=== PATIENT | female | born 1955 | race Caucasian/White ===

== ENCOUNTER 2020-09-05 07:58 | Day surgery (SDC) | payer BC, SELFPAY ==
--- NOTE | 2020-09-05 08:37 | HO.ANESPROP2 ---
[facility] Past Medical History Medical History Arthritis Back pain COPD (chronic obstructive pulmonary disease) CVA (cerebral vascular accident) Diabetes Surgical History Surgical History H/O colonoscopy H/O laparoscopic adjustable gastric banding Social History Social History Smoking Status: Former smoker Advance Directives: No Meds Allergies Allergy/AdvReac Type Severity Reaction Status Date / Time Penicillins [PCN] Allergy Mild HIVES Unverified 08/10/20 14:40 penicillin V Allergy Unknown Verified 01/18/20 00:00 EGGS Allergy Unknown Uncoded 08/18/12 00:00 eggs Allergy Unknown Uncoded 01/18/20 00:00 Penicillin Allergy Unknown Rash Uncoded 08/18/12 00:00 SEA FOOD Allergy Unknown Uncoded 08/18/12 00:00 Home Medications Medication Instructions Recorded Confirmed Type Fish Oil 09/01/20 History Motrin 09/01/20 09/01/20 History omeprazole 09/01/20 History Exam Exam Date and Time: September 05, 2020 0837 Airway Mallampati Class: I TM Dist: >3cm Neck ROM: Full Heart: rrr Lungs: nl Other: ao3 Assessment and Plan Assessment Anesthesia Assessment: Anesthesia Plan Discussed and Chart Reviewed Final Anesthetic Review NPO: Yes ASA Class: II Final Preanesthetic Review: No Changes in Pt Med Stat, Meds/Allgs Chart Reviewed, Consent Obtained/Reviewed and Anes Risks/Benef Reviewed Patient Risk: Low Procedure Risk: Low Anesthetic Plan Anesthetic Plan: MAC: Disposition: Standard PACU
[2020-09-05 08:40] VITALS: BP 138/76; PULSE 70; RESP 16; TEMP 36.1; O2SAT 97; BMI 30.2
[2020-09-05] MEDS: Lactated Ringers 1,000 ML 50 ML IVCONT (08:55)
--- NOTE | 2020-09-05 09:17 | MHC.SHP ---
Pre-Procedural Eval Section A The patient is an INPATIENT: No Changes since office visit: No Cold of Flu in the past 2 weeks, No New Medical Problems, No Changes in Medication and No Patient answered all questions The History & Physical has been completed within 30 days and I have reviewed it.: Yes Section B Chief Complaint: GERD, RECTAL BLEEDING Allergies: Allergies Allergy/AdvReac Type Severity Reaction Status Date / Time Penicillins [PCN] Allergy Mild HIVES Verified 09/05/20 08:48 penicillin V Allergy Unknown Hives Verified 09/05/20 08:48 EGGS Allergy Unknown upset Uncoded 09/05/20 08:48 stomach eggs Allergy Unknown Swelling Uncoded 09/05/20 08:48 Penicillin Allergy Unknown Rash Uncoded 08/18/12 00:00 SEA FOOD Allergy Unknown Swelling Uncoded 09/05/20 08:48 Plan Patient has been examined and remains a candidate for the planned procedure
[2020-09-05 09:50] VITALS: BP 127/71; PULSE 66; RESP 16; TEMP 36.1; O2SAT 98
--- NOTE | 2020-09-05 09:50 | PM.OP ---
Brief Operative Note Date of procedure: 09/05/20 Pre-op diagnosis: GERD, rectal bleeding Post-op diagnosis: same (normal colonoscopy) Procedure: egd colonoscopy Surgeon: Benja Vargas Anesthesia: MAC Estimated blood loss (mL): 5 Pathology: other (antrum and egj biopsies) Condition: stable Disposition: PACU
[2020-09-05 10:05] VITALS: BP 138/72; PULSE 62; RESP 20; O2SAT 98
--- NOTE | 2020-09-05 10:13 | OP_ITS ---
SURGEON: Benja Vargas MD INDICATIONS: 1. Gastroesophageal reflux disease. 2. Rectal bleeding. PREOPERATIVE DIAGNOSIS: POSTOPERATIVE DIAGNOSIS: PROCEDURE PERFORMED: 1. Upper endoscopy with biopsy. 2. Colonoscopy to the terminal ileum. ESTIMATED BLOOD LOSS: COMPLICATIONS: ANESTHESIA: ASSISTANTS: SPECIMENS: DESCRIPTION OF PROCEDURE: History and physical performed. The risks and benefits of the procedure were explained to the patient. Informed consent was obtained. The patient was placed in left lateral decubitus position. The Olympus video gastroscope was introduced into the esophagus, stomach, and duodenum. Examination was performed. The scope was removed. She tolerated the procedure well and was repositioned for colonoscopy. Digital rectal exam was performed and was found to be normal. The Olympus pediatric video colonoscope was introduced into the rectum and advanced to the cecum without difficulty. The cecum was identified by transillumination, palpation, and identification of ileocecal valve. Examination was performed. The scope was removed. She tolerated the procedure well and returned to recovery area in stable condition. FINDINGS: Upper endoscopy: 1. Esophagus: The esophagus was normal. There was no esophagitis. 2. Stomach: The stomach showed surgical changes from her previous lap band placement. Antral biopsies were obtained to rule out H pylori. No ulcer was identified. 3. Duodenum: The bulb and second portion were normal. Colonoscopy: The terminal ileum was normal. The visualized colonic mucosa was within normal limits without evidence of masses or ulcers. No polyps were identified. There was mild diverticulosis. Retroflexed examination showed small internal hemorrhoids. IMPRESSION: 1. Gastroesophageal reflux disease. 2. Rectal bleeding, normal colonoscopy. RECOMMENDATION: 1. Follow up the biopsy results. 2. Repeat colonoscopy is recommended in 10 years for average risk individuals. MD VITALIY Gaytan/TAMARA / [id number]
== END 2020-09-05 10:41 | disposition home or self-care (01) ==
PROVIDERS: Internal Medicine Gastroenterology; PCP Family Medicine; Visit Provider Internal Medicine
PROC: (CPT 45378; principal; 2020-09-05 09:20)
DX: K62.5 Hemorrhage of anus and rectum (principal); Z86.010 Personal history of colon polyps; Z80.0 Family history of malignant neoplasm of digestive organs; K57.30 Diverticulosis of large intestine without perforation or abscess without bleeding; K64.8 Other hemorrhoids; K21.9 Gastro-esophageal reflux disease without esophagitis; K29.50 Unspecified chronic gastritis without bleeding; Z90.49 Acquired absence of other specified parts of digestive tract; Z98.84 Bariatric surgery status; Z79.899 Other long term (current) drug therapy; Z79.1 Long term (current) use of non-steroidal anti-inflammatories (NSAID); Z87.891 Personal history of nicotine dependence; Z88.0 Allergy status to penicillin; Z91.012 Allergy to eggs
CPT/HCPCS: 45378; 43239; 88305; 88342

== ENCOUNTER 2020-10-26 12:27 | Outpatient (REF) | payer BC, SELFPAY | END 2020-10-26 12:28 | disposition home or self-care (01) | LOC: HO.HMGCLDS 12:27 | PROVIDERS: Visit Provider Internal Medicine | DX: Z20.828 Contact with and (suspected) exposure to other viral communicable diseases (principal) | CPT/HCPCS: C9803; U0003 ==

== ENCOUNTER 2024-06-17 11:05 | Outpatient (AMB) | payer BC, SELFPAY ==
--- NOTE | 2024-06-17 11:40 | AM.OFFWIN_ITS ---
Intake Vital Signs 06/17/24 11:41 Height 5 ft 2 in Weight 187 lb BMI 34.2 BP 122/80 Blood Pressure Location Rt brachial Position Sitting Pulse 77 Pulse Source Pulse Oximeter Temp 98.2 F Temp Source Oral Pulse Oximetry (%) 98 Oxygen Delivery Method Room Air Intake Visit Reasons: Ongoing Cold for 3wks Intake Note: pt here c/o ongoing cold symptoms for 3 weeks Patient Tobacco Use Status: Never used Tobacco Allergies Penicillins [PCN] Allergy (Mild, Verified 06/17/24 11:41) HIVES penicillin V Allergy (Unknown, Verified 06/17/24 11:41) Hives EGGS Allergy (Unknown, Uncoded 06/17/24 11:41) upset stomach eggs Allergy (Unknown, Uncoded 06/17/24 11:41) Swelling Penicillin Allergy (Unknown, Uncoded 06/17/24 11:41) Rash SEA FOOD Allergy (Unknown, Uncoded 06/17/24 11:41) Swelling Do you need a note to return to daycare/school/sports/work: No HPI HPI Comments History of Present Illness Details Patient is a 69-year-old female complaining of 3 weeks of cold symptoms. She said it is it started with some right ear pain and some lymph node swelling on her right side below her ear. But now she states she has lymph node swelling on the left side of her neck some chest congestion some wheezing and a cough. She denies a history of asthma but said she had it as a child. She denies any head congestion, sinus pain, shortness of breath, chest pain or fevers. She states he has taken Advil with minimal relief. She denies any sick contacts at home. She has tested for COVID twice and it has been negative. 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 [facility] Medical History (Updated 06/17/24 @ 12:03 by Chelita Stacy PA-C) Arthritis Back pain Surgical History H/O laparoscopic adjustable gastric banding H/O colonoscopy Social History Patient Tobacco Use Status: Never used Tobacco Review of Systems Const All systems reviewed & are unremarkable except as noted in HPI and below Physical Exam Vital Signs: Last Vital Signs Temp 98.2 F 06/17/24 11:41 Pulse 77 06/17/24 11:41 BP 122/80 06/17/24 11:41 Pulse Ox 98 06/17/24 11:41 Oxygen Delivery Method Room Air 06/17/24 11:41 BMI result Body Mass Index 34.2 Const General: cooperative, healthy appearing, comfortable and no acute distress Orientation/consciousness: patient oriented x3 Limitations: no limitations HEENT Head: Yes normal to inspection Ears: hearing grossly normal bilaterally, external ears normal, TM normal on the left, Abnormal EAC present edema on the right and EAC tenderness on the right and unable to visualize TM (Secondary to swelling in the external ear canal) on the right General nose exam: Normal external nose present, Normal nares present and No nasal discharge present Face and sinus: Yes normal facial exam and Yes sinuses nontender Mouth: Normal oral and palatal mucosa present and moist mucous membranes Throat: Yes tonsils normal, Yes uvula midline and Yes posterior oropharynx abnormal (Erythema) Eyes General: appearance normal, both eyes and all related structures Neck Neck: Yes normal visual inspection, Yes full ROM, Yes no meningeal signs and Yes lymphadenopathy (Cervical lymph nodes, bilateral) Resp Effort & Inspection: normal respiratory effort, able to speak in complete sentences, Actively coughing, no respiratory distress, not tachypneic, no tripod positioning and no use of accessory muscles Auscultation: clear to auscultation bilaterally Cardio Rate: regular rate Rhythm: regular rhythm Heart sounds: normal S1 and S2 Skin General skin exam: no rashes or lesions noted Neuro General: patient oriented x3 and no meningeal signs Extrem General: Yes normal to inspection and Yes no clubbing, cyanosis or edema Assessment & Plan Assessment & Plan (1) Otitis externa: Code(s): H60.90 - Unspecified otitis externa, unspecified ear Qualifiers: Otitis externa type: diffuse Chronicity: acute Laterality: right Qualified Code(s): H60.311 - Diffuse otitis externa, right ear Plan: Recommended if her ear pain persists after she is done using the drops to come back in because I could not visualize the tympanic membrane and I could not rule out an otitis media. However she is also getting a Z-Russell for the walking pneumonia which if she did have a otitis media, should help with. (2) Atypical pneumonia: Code(s): J18.9 - Pneumonia, unspecified organism Plan: Sent Z-Russell to pharmacy Plan See above Medications: New rqltwnop-wjezjoejz-BA 3.5-10,000-1 mg/mL-unit/mL-% 4 drps otic (ear) right Q8H 7 days 10 mL 0RF azithromycin For 250 mg dose pack: take 500 mg today (day 1), then 250 mg for 4 days (days 2-5) PO 6 tabs 0RF Coding Level of Care Code New Pt Level 4 (63811) Diagnoses Acute diffuse otitis externa of right ear H60.311 Otitis externa type: diffuse Chronicity: acute Laterality: right Atypical pneumonia J18.9
[2024-06-17 11:41] VITALS: BP 122/80; PULSE 77; TEMP 36.8; O2SAT 98; BMI 34.2
== END 2024-06-17 12:01 | disposition home or self-care (01) ==
PROVIDERS: PCP Family Medicine; Visit Provider Physician Assistant
DX: H60.311 Diffuse otitis externa, right ear (principal); J18.9 Pneumonia, unspecified organism
CPT/HCPCS: 99204

== ENCOUNTER 2024-10-31 14:57 | Emergency (ER) | payer BC, SELFPAY ==
--- NOTE | 2024-10-31 | ECG_ITS ---
Test Reason : syncope Blood Pressure : / mmHG Vent. Rate : 070 BPM Atrial Rate : 070 BPM P-R Int : 178 ms QRS Dur : 084 ms QT Int : 424 ms P-R-T Axes : 036 006 036 degrees QTc Int : 457 ms Sinus rhythm with occasional Premature ventricular complexes Possible Left atrial enlargement Nonspecific T wave abnormality Abnormal ECG When compared with ECG of 30-MAY-2003 16:29, Premature ventricular complexes are now Present T wave amplitude has decreased in Lateral leads Referred By: Generic ED Physician Electronically Signed By:PAT ABDALLA MD
--- NOTE | ~2024-10-31 | XR_ITS ---
EXAMINATION: XR CHEST CLINICAL INFORMATION: syncope COMPARISON: None available. TECHNIQUE: 2 views of the chest were obtained. FINDINGS: No significant abnormality is noted involving the heart, lungs, mediastinum, bony thorax or soft tissues. XR/XR chest 2V IMPRESSION: Unremarkable examination. Electronically signed by: Leigh Ann Garcia MD 10/31/2024 04:05 PM [facility]
[2024-10-31 15:01] VITALS: BP 128/92; PULSE 68; O2SAT 98
[2024-10-31 15:05] VITALS: BMI 36.2
[2024-10-31 15:26] LABS: MANUAL DIFF FLAG NO
[2024-10-31 15:28] LABS: Basophils Percent Auto 0.5 % (0-2); Eosinophils Absolute Auto 0.2 X10*3/uL (0.0-0.4); Eosinophils Percent Auto 3.1 % (0-4); Hematocrit 40.5 % (37.0-47.0); Hemoglobin 13.6 g/dl (12.0-16.0); Imm Gran Abs Auto 0.03 X10*3/uL (0.00-0.03); Imm Gran Pct Auto 0.4 % (0.0-0.4); Lymphocytes Absolute Auto 2.9 X10*3/uL (1.2-4.9); Lymphocytes Percent Auto 38.3 % (20-40); Mean Corpuscular HGB Conc 33.6 g/dl (31.0-35.0); Mean Corpuscular Hemoglobin 33.5 pg (27.0-33.0); Mean Corpuscular Volume 99.8 fL (80.0-98.0); Mean Platelet Volume 11.3 fL (9.4-12.3); Monocytes Absolute Auto 0.5 X10*3/uL (0.1-1.2); Monocytes Percent Auto 6.6 % (2-11); Neutrophils Absolute Auto 3.9 x10*3/uL (2.0-8.3); Neutrophils Percent Auto 51.1 % (45-73); Platelet Count 208 X10*3/uL (160-400); Red Blood Count 4.06 X10*6/uL (4.20-5.50); Red Cell Distribution Width 12.9 % (11.0-16.0); White Blood Count 7.6 X10*3/uL (4.8-10.8)
[2024-10-31 15:34] LABS: INTERNATIONAL NORM RATIO 0.9 (0.9-1.1)
[2024-10-31 15:36] LABS: Partial Thromboplastin Time 26.7 SEC (26.0-36.8)
[2024-10-31 15:48] LABS: Albumin Level 3.9 g/dL (3.5-5.0); Anion Gap 13 (12-20); Aspartate Amino Transferase 33 U/L (5-31); Bilirubin Total 0.2 mg/dL (0.0-1.0); Blood Urea Nitrogen 12 mg/dL (9-16); Calcium 9.6 mg/dL (8.4-10.2); Carbon Dioxide 22 mmol/L (22-29); Chloride 108 mmol/L (96-108); Creatinine Clr Calc Pharmacy 59.2; Estimated Glomerular Filt Rate 58; Glucose Random 124 mg/dL (60-115); Magnesium 1.8 mg/dL (1.6-2.6); Potassium 3.4 mmol/L (3.3-5.1); Sodium 140 mmol/L (135-145)
[2024-10-31 15:50] LABS: Appearance Urine Cloudy; Color Urine Yellow; Glucose Urine UA Negative (Negative); Leukocyte Esterase Urine Trace (Negative); Nitrite Urine Negative (Negative); Specific Gravity - Urine 1.015 (1.005-1.025); UMIC TRIGGER UACC YES; Urine Blood Trace (Negative); Urine Ketones Negative (Negative); Urine Protein Negative (Neg-Trace)
[2024-10-31 15:51] LABS: Troponin-I High Sensitivity < 2.7 ng/L (<3.5-17.0)
[2024-10-31 16:12] LABS: Influenza A PCR NEGATIVE (Negative); Influenza B PCR NEGATIVE (Negative); Resp Syncy Virus RNA Qual PCR NEGATIVE (Negative); SARS COV2 PCR INHOUSE NEGATIVE (Negative)
[2024-10-31 16:12] LABS: Bacteria Urine Trace (None Seen); RBC Urine 0-2 /HPF (0-2); WBC Urine 0-5 /HPF (0-5)
[2024-10-31 16:33] LABS: Alanine Aminotransferase 34 U/L (0-31); Alkaline Phosphatase 91 U/L (39-117)
--- NOTE | 2024-10-31 16:57 | ED.GENADULT ---
HPI - General Adult General Chief complaint: Syncope Stated complaint: SYNCOPAL EPISODE Time Seen by Provider: 10/31/24 16:57 History of Present Illness ED Provider: Nicole COLON narrative: The patient is a 69-year-old female who was at her uncle's 87th birthday alliance party. The alliance party started at noon. She had eaten lunch. She was standing around with other people in the living room. There were a lot of people, possibly 25 people. She started to feel somewhat hot and depressed. She then felt lightheaded and as if she might pass out. She indicated to her that she was not feeling well and was trying to find a chair to sit down when she became very weak and her had to catch her. The says that she did not fully pass out but came very close to passing out. She lay on the ground for awhile and then felt a need to move her bowels. She was helped to the bathroom and had a large bowel movement and became profoundly sweaty. During this time someone had called 911. Paramedics arrived and brought her to the hospital. During that episode she did not have any headache she did not have any chest pain she did not have any shortness of breath, she had nausea but she did not have any abdominal pain. She did not vomit. The patient says that she had a similar episode about a year ago when she was at a gymnastics meet. She says on that occasion she also was in a large warm room wearing a coat when she started to feel like she might pass out. Not occasion she was taken to the emergency room at [facility]. She was evaluated and discharged from the emergency room. The patient has had episodes which have been thought to possibly be TIAs. She described an episode in which she once had trouble recalling words. That episode was not associated with the fainting component. Related Data Home Medications ?Medication ?Instructions ?Recorded ?Confirmed ezetimibe 10 mg tablet 10 mg PO DAILY 06/17/24 ibuprofen 200 mg capsule 200 mg PO Q6H PRN 06/17/24 Previous Rx's ?Medication ?Instructions ?Recorded azithromycin 250 mg tablet See Rx Instructions PO .COMPLEX #6 06/17/24 tabs ehjvjhux-ibwmtoyia-pwezhoiet 3.5 4 drp otic (ear) right Q8H 7 days 06/17/24 mg-10,000 unit/mL-1 % ear #10 mL drops,susp Allergies Allergy/AdvReac Type Severity Reaction Status Date / Time Penicillins [PCN] Allergy Mild HIVES Verified 10/31/24 15:06 penicillin V Allergy Unknown Hives Verified 10/31/24 15:06 EGGS Allergy Unknown upset Uncoded 10/31/24 15:06 stomach eggs Allergy Unknown Swelling Uncoded 10/31/24 15:06 Penicillin Allergy Unknown Rash Uncoded 10/31/24 15:06 SEA FOOD Allergy Unknown Swelling Uncoded 10/31/24 15:06 Review of Systems Review of Systems: Yes all other systems are reviewed and are negative [facility] Past Medical History Medical History (Updated 11/01/24 @ 00:00 by Marietta Aquino) Arthritis Back pain Surgical History H/O laparoscopic adjustable gastric banding H/O colonoscopy Social History Social History Patient Tobacco Use Status: Never used Tobacco Advance Directives: No Advance Directives Information Provided: Yes Do you have a plan to hurt others: No Plan Physical Exam ED Vital Signs: Vital Signs - 24 hr 10/31/24 18:00 10/31/24 18:01 10/31/24 18:18 Temperature 97.8 F 97.7 F Pulse Rate 79 71 Respiratory Rate 18 18 Blood Pressure 206/94 H 197/89 H 185/72 H Pulse Oximetry 98 98 Oxygen Delivery Method Room Air Room Air 10/31/24 18:19 Temperature 97.7 F Pulse Rate 71 Respiratory Rate 18 Blood Pressure 185/72 H Pulse Oximetry 98 Oxygen Delivery Method Room Air BMI result Body Mass Index 36.2 Const Other: The patient is awake, alert, pleasant, cooperative. She looks entirely well. HENMT Head: Yes normal to inspection Face and sinus: Yes normal facial exam Mouth: Normal oral and palatal mucosa present and moist mucous membranes abnormal Eyes General: appearance normal, both eyes and all related structures EOM: EOMs intact bilaterally Neck Neck: Yes full ROM and Yes no JVD Resp Effort & Inspection: normal respiratory effort Auscultation: clear to auscultation bilaterally Cardio Rate: regular rate Rhythm: regular rhythm Heart sounds: S1 normal heart sound present and S2 normal heart sound present GI Other: Abdomen is soft and nontender Skin Other: Skin is dry and unremarkable Neuro Other: The patient is awake, alert, pleasant, cooperative. Face is symmetrical. Speech is clear. Eye movements intact. Neck is supple. She moves her extremities normally and appropriately. She has a normal gait. Extrem Other: No calf swelling or tenderness, no peripheral edema, no asymmetry Medications Administered Discontinued Medications Generic Name Dose Route Start Last Admin Trade Name Kiran PRN Reason Stop Dose Admin Acetaminophen 975 mg 10/31/24 17:22 10/31/24 17:36 Acetaminophen 325 Mg Tablet PO 10/31/24 17:23 975 mg ONCE ONE Administration Sodium Chloride 1,000 mls @ 999 mls/hr 10/31/24 17:15 10/31/24 17:36 Ns IV 10/31/24 18:15 999 mls/hr .Q1H1M [facility] Administration Medical Decision Making Medical Decision Making [facility] Narrative: The patient presents to the emergency room after having a syncopal episode that occurred while she was standing at a alliance party in a crowded room. She had a prodromal sense of feeling lightheaded and she had the sense that she was going to pass out. Her caught her as she went to the ground. There was no injury. Her isn't sure that she had full loss of consciousness. She subsequently had powerful urge to have a bowel movement passed a large bowel movement and became profoundly sweaty. This was not associated with a headache, chest pain, pleuritic pain, shortness of breath, or abdominal pain. She seems to have fully recovered. She has subsequently developed a headache but she looks very well. EKG and labs are unremarkable. This sounds very much like a vasovagal episode. She describes a similar episode at a gymnastics meet year ago when she was evaluated at [facility] in discharged from the emergency room on that occasion. I think she may be discharged to follow up with the regular doctor. Lab Data 10/31/24 15:19 10/31/24 15:19 Labs: Lab Results 10/31/24 10/31/24 Range/Units 15:19 15:43 WBC 7.6 (4.8-10.8) X10*3/uL RBC 4.06 L (4.20-5.50) X10*6/uL Hgb 13.6 (12.0-16.0) g/dl Hct 40.5 (37.0-47.0) % MCV 99.8 H (80.0-98.0) fL MCH 33.5 H (27.0-33.0) pg MCHC 33.6 (31.0-35.0) g/dl RDW 12.9 (11.0-16.0) % Plt Count 208 (160-400) X10*3/uL MPV 11.3 (9.4-12.3) fL Immature Gran % (Auto) 0.4 (0.0-0.4) % Neut % (Auto) 51.1 (45-73) % Lymph % (Auto) 38.3 (20-40) % Henderson % (Auto) 6.6 (2-11) % Eos % (Auto) 3.1 (0-4) % Baso % (Auto) 0.5 (0-2) % Lymph # (Auto) 2.9 (1.2-4.9) X10*3/uL Henderson # (Auto) 0.5 (0.1-1.2) X10*3/uL Eos # (Auto) 0.2 (0.0-0.4) X10*3/uL Baso # (Auto) 0.0 (0.0-0.2) X10*3/uL Abs Immat Gran (auto) 0.03 (0.00-0.03) X10*3/uL Absolute Neuts (auto) 3.9 (2.0-8.3) x10*3/uL Absolute Nucleated RBC 0.000 (0.0-0.012) X10*3/uL Nucleated RBC % (auto) 0.0 (0.0-0.2) /100WBC PT 11.0 (10.9-12.4) SEC INR 0.9 (0.9-1.1) APTT 26.7 (26.0-36.8) SEC Sodium 140 (135-145) mmol/L Potassium 3.4 (3.3-5.1) mmol/L Chloride 108 (96-108) mmol/L Carbon Dioxide 22 (22-29) mmol/L Anion Gap 13 (12-20) BUN 12 (9-16) mg/dL Creatinine 0.96 (0.5-1.4) mg/dL Estim Creat Clear Calc 59.2 Estimated GFR 58 Random Glucose 124 H (60-115) mg/dL Calcium 9.6 (8.4-10.2) mg/dL Magnesium 1.8 (1.6-2.6) mg/dL Total Bilirubin 0.2 (0.0-1.0) mg/dL AST 33 H (5-31) U/L ALT 34 H (0-31) U/L Alkaline Phosphatase 91 (39-117) U/L Troponin I High Sens < 2.7 (<3.5-17.0) ng/L Total Protein 7.0 (6.5-8.0) g/dL Albumin 3.9 (3.5-5.0) g/dL Urine Color Yellow Urine Appearance Cloudy Urine pH 5.0 (5.0-9.0) Ur Specific [place] 1.015 (1.005-1.025) Urine Protein Negative (Neg-Trace) mg/dL Urine Glucose (UA) Negative (Negative) mg/dL Urine Ketones Negative (Negative) mg/dL Urine Blood Trace H (Negative) Urine Nitrite Negative (Negative) Ur Leukocyte Esterase Trace H (Negative) Urine RBC 0-2 (0-2) /HPF Urine WBC 0-5 (0-5) /HPF Ur Squamous Epith Cells 3-5 (0-2) /HPF Urine Bacteria Trace (None Seen) Hyaline Casts 6-10 (0-2) /LPF Influenza Type A (PCR) NEGATIVE (Negative) Influenza Type B (PCR) NEGATIVE (Negative) RSV RNA Qual (PCR) NEGATIVE (Negative) SARS-CoV-2 RNA (RT-PCR) NEGATIVE (Negative) Independent Interpretation I performed an independent interpretation of an: EKG Interpretation: EKG at 15:11 shows sinus rhythm with the occasional premature ventricular complexes at 70 beats per minute. There are nonspecific T-wave changes but no definite acute ischemic changes. The EKG is different in some respects from her previous EKG but her last EKG was in 2002. Discharge Plan Discharge Clinical Impression: Vasovagal syncope Patient Disposition: Home, Self-Care Instructions: Syncope (ED) Additional Instructions: I believe that the fainting that you experienced today is a process that we referred to as ?vasovagal syncope. ? I suspect that this is the same mechanism that occurred when you had a fainting episode a year ago and were seen in the emergency room at [facility]. Vasovagal syncope is considered a benign phenomenon and is not considered indicative of other problems. Nevertheless please make a follow up appointment with your regular doctor soon to discuss these episodes further. Return to the emergency room if significantly worse Prescriptions: No Action ezetimibe 10 mg tablet 10 mg PO DAILY ibuprofen 200 mg capsule 200 mg PO Q6H PRN dzyeuqmr-bhgusvkgt-QQ 3.5-10,000-1 mg/mL-unit/mL-% drops,suspension 4 drp otic (ear) right Q8H 7 Days Qty: 10 0RF azithromycin 250 mg tablet See Rx Instructions PO .COMPLEX Qty: 6 0RF Rx Instructions: For 250 mg dose pack: take 500 mg today (day 1), then 250 mg for 4 days (days 2-5) PO Referrals: Matteo Cho MD [Physician] - (Vasovagal syncope) Interventions: ED Discharge Assessment Last Done: 10/31/24 18:19 Discharge Date/Time: 10/31/24 18:23 Print Language: Sami
[2024-10-31] MEDS: 0.9 % Sodium Chloride 1,000 ML 999 ML IV (17:36)
[2024-10-31] MEDS: Acetaminophen 325 MG TABLET 975 MG PO (17:36)
--- NOTE | 2024-10-31 17:47 | PC.NURSE ---
pt verbalizes increase in headache at this time - requesting Tylenol. provider notified/aware. medication/IVF infusing per provider order. effectiveness pending. neuros remain intact. respirations remain even/unlabored. bedside for support. plan of care ongoing. call edwards placed within reach.
[2024-10-31 18:00] VITALS: BP 206/94; PULSE 79; RESP 18; TEMP 36.6; O2SAT 98
[2024-10-31 18:01] VITALS: BP 197/89
[2024-10-31 18:18] VITALS: BP 185/72; PULSE 71; RESP 18; TEMP 36.5; O2SAT 98
[2024-10-31 18:19] VITALS: BP 185/72; PULSE 71; RESP 18; TEMP 36.5; O2SAT 98
--- OUTSIDE RECORDS SUMMARY | 2024-11-03 12:11 | XMS_ITS | Patient Health Record ---
Author Organization [facility] Address [address] [place] [address] Care Team Providers Care Line Repairer Tower Name Role Phone Matteo Cho Primary Care Provider Benja Mendes Jr Unavailable [phone] ALLERGIES Allergen (clinical drug ingredient) Drug/Non Drug Allergy documented on EMR Reaction Allergy Type Onset Date Status Penicillin Unknown Drug Allergy Active Eggs (uncoded) Unknown Allergy Activ e REASON FOR REFERRAL No Information MEDICATIONS Medication SIG (Take, Route, Frequency, Duration) Notes Start Date End Date Status Ibuprofen PRN Active Fish Oil Active NexIUM 40 MG 1 capsule Orally Onc e a day for 30 day(s) 11/27/2020 Active IMMUNIZATIONS Vaccine Route Administration Date Status Comme nts Influenza Unknown 08/16/2020 Refused Influenza Unknown 11/27/2020 Refused SOCIAL HISTORY Tobacco Use: Social History Observation Description Date Details (start date - stop date) Former Smoker NA - NA Sex Assigned At : Social History Observation Description Sex Assigned At Unknown Tobacco Use/Smoking Question Answer Notes Patient is a former smoker How long has it been since you last smoked? > 10 years PROBLEMS Problem Type ICD Code Onset Dates Problem Status W/U Status Risk SNOMED Code Notes Problem Colon cancer screening (Z12.11) Active confirmed 569700672 Problem Rectal bleeding (K62.5) Active confirmed 67413219 Problem Encounter for other preprocedural examination (Z01.818) Active confirmed 38624865 Problem Gastroesophageal reflux disease without esophagitis (K21.9) Active confirmed 947662296 PLAN OF TREATMENT Future Test Test Name Order Date COLONOSCOPY 04/08/2013 COLONOSCOPY 02/01/2016 UPPER GI ENDOSCOPY 08/16/2020 COLONOSCOPY 08/16/2020 Insurance Providers Payer Name Payer Address Payer Phone Subscriber Number Group Number Insured Name Patient Relationship to Insured Coverage Start Date Coverage End Date [facility] [employer] [address] [place] [address] [id number]SY SAHA Self - patient is the insured MEDICAL (GENERAL) HISTORY Medical History History ICD Code colonoscopy 09/05/20, recall 5 years due to history of polyps dysphagia gastroesophageal reflux dise ase, EGD 09/05/20 negative for Rojas's esophagus or H. pylori lower back pain - tail bone Surgical History Surgery Date(Month/Year) cholecystectomy laparoscopic gastric banding
--- OUTSIDE RECORDS SUMMARY | 2024-11-03 12:11 | XMS_ITS | Continuity of Care Document ---
Author Organization [facility] Address [address] [facility], 3r d Floor, [address] [place] [phone]- Care Team Providers Care Rehab Assistant Name Role Phone Marqusi KIM, Matteo Dupree Primary Care Physician [facility] [id number] Date(s): 09/14/24 - 10/14/24 [facility] [address] [facility] 3rd Floor, [address] [place] [id number] Attending Physician: Meaghan Gomes Admitting Physician: Meaghan Gomes Referring Physician: Admtr ArKatt Encounter Type: Triage Allergies, Adverse Reactions, Alerts Substance Criticality Severity Reaction Reaction Severity Status penicillins reports severe rash requiring injections as a child Active Egg Allergy eczema Active Immunizations Given and Recorded Vaccine Date Status Refusal Reason SARS-CoV-2 (COVID-19) mRNA-1273 vaccine 11/10/21 R ecorded SARS-CoV-2 (COVID-19) mRNA-1273 vaccine 03/08/21 R ecorded SARS-CoV-2 (COVID-19) mRNA-1273 vaccine 02/08/21 R ecorded tetanus/diphtheria/pertussis, acel(Tdap) 1 11/24/09 Recorded 1Location History: [facility] Medications Advil By Mouth, Every 6 hours, Refills 0, Maintenance, 02/26/24 4:43:00 PM EDT, Partial fill upon patient request if the prescription is for a schedule II opioid drug. Start Date: 02/26/24 Status: Ordered Repeat number: 1 Diflucan 150 mg oral tablet 1 tablet = 150 mg, By Mouth, Once, # 1 tablet, 0 Refills, Soft Stop, 07/14/24 4:54:00 PM EDT, Tablet, [facility], Partial fill upon patient request if the prescription is for a schedule II opioid drug., 157.5, cm, 07/14/24 16:23:00 EDT, Height, 85, kg, 06/07/24 14:21:00 EDT, Dry Weight Start Date: 07/14/24 Status: Ordered Quantity: 1.0 Unit: tablet Repeat number: 1 Indication: Acute candidiasis of vulva and vagina metoprolol 25 mg oral tablet, extended release 25 mg, 1, tablet, By Mouth, Daily, # 30 tablet, Refills 2, Tot. Refills 2, Maintenance, 08/13/24 12:48:00 PM EDT, Route to Pharmacy Electronically, [facility], Partial fill upon patient request if the prescription is for a schedule II opioid drug., 157.5, cm, 07/14/24 16:23:00 EDT, Height, 85, kg, 06/07/24 14:21:00 EDT, Dry Weight Start Date: 08/13/24 Status: Ordered Quantity: 30.0 Unit: tablet Repeat number: 3 pantoprazole 40 mg oral delayed release tablet 1 tablet, By Mouth, Daily, # 90 tablet, 1 Refills, Maintenance, 08/09/23 9:14:00 AM EDT, 157.5, cm, 01/03/23 13:39:00 EST, Height, 78.4, kg, 08/20/22 11:34:00 EDT, Dry Weight Start Date: 08/09/23 Status: Ordered Quantity: 90.0 Unit: tablet Repeat number: 1 Plavix 75 mg oral tablet 75 mg, 1, tablet, By Mouth, Daily, Watch for rash and stop immediately if any rash or bleeding noted., # 30 tablet, Refills 5, Tot. Refills 5, Maintenance, 06/07/24 3:17:00 PM EDT, Route to Pharmacy Electronically, [facility], Patient allergic to aspirin; okay to take with pantoprazole if needed, 157.5, cm, 06/07/24 14:21:00 EDT, Height, 85, kg, 06/07/24 14:21:00 EDT, Dry Weight Start Date: 06/07/24 Stop Date: 12/04/24 Status: Ordered Quantity: 30.0 Unit: tablet Repeat number: 6 Zetia 10 mg oral tablet 1 tablet = 10 mg, By Mouth, Daily, # 30 tablet, 6 Refills, Maintenance, 06/07/24 3:18:00 PM EDT, Tablet, [facility] # [facility], Partial fill upon patient request if the prescription is for a schedule IIopioid drug., 157.5, cm, 06/07/24 14:21:00 EDT, Height, 85, kg, 06/07/24 14:21:00 EDT, Dry Weight Start Date: 06/07/24 Stop Date: 01/03/25 Status: Ordered Quantity: 30.0 Unit: tablet Repeat number: 7 Problem List Condition Confirmation Course Effective Dates Status Health St atus Informant Acid reflux disease Confirmed Active Chronic heartburn Confirmed Active Obese class I Confirmed Active Social History Social History Type Response Smoking Status Former smoker; Tobac co user in household: Yes; Other: parent smoked; Tobacco use times per day: quit 31 yrs ago; entered on: 03/04/18 Sex Sex Representation Female (finding) Patient Care team information Care Team Personnel Name: Marquis KIM, Matteo Dupree Position: S Physician - Primary Care Member Role: PCP Address: [address] [place] [id number] Telecom: Care Team Related Persons Name: IZABELA SAHA Insurance Providers Guarantor name: PATSY [facility] Plan Information #: 1 Payer: O BLUE IN NETWORK Member Number: NA Policy Number: NA Group Number: NA
--- OUTSIDE RECORDS SUMMARY | 2024-11-03 12:11 | XMS_ITS | Continuity of Care Document ---
Author Organization [facility] Address [address] [place] [address]- Care Team Providers Care Packaging Coordinator Name Role Phone Marquis KIM, Matteo Dupree Primary Care Physician [phone] [id number] Date[facility]s): 09/08/24 - 10/08/24 [facility] [address] [place] [address]- Encounter Type: Triage Allergies, Adverse Reactions, Alerts [...] tetanus/diphtheria/pertussis, acel(Tdap) 1 11/24/09 Recorded 1Location History: [facility] Medications Advil By Mouth, Every 6 hours, Refills 0, Maintenance, 02/26/24 4:43:00 PM EDT, Partial fill upon patient request if the prescription is for a schedule II opioid drug. Start Date: 02/26/24 Status: Ordered Repeat number: 1 Diflucan 150 mg oral tablet 1 tablet = 150 mg, By Mouth, Once, # 1 tablet, 0 Refills, Soft Stop, 07/14/24 4:54:00 PM EDT, Tablet, [facility], Partial fill upon [...] 12:48:00 PM EDT, Route to Pharmacy Electronically, [facility] # [facility], Partial fill upon patient [...] 3:17:00 PM EDT, Route to Pharmacy Electronically, [facility] # [facility], Patient allergic to aspirin; [...] Care team information Care Team Personnel Name: Matteo Cho MD Position: [facility] Physician - Primary Care Member Role: PCP Address: [address] [place] [phone]- Telecom: Care Team Related Persons Name: IZABELA SAHA Insurance Providers Guarantor name: PATSY YIFAN Health Plan Information #: 1 Payer: HMO BLUE IN NETWORK Member Number: NA Policy Number: NA Group Number: NA
== END 2024-10-31 18:23 | disposition home or self-care (01) ==
PROVIDERS: Physician Assistant Medical; Emergency Provider Emergency Medicine
DX: R55 Syncope and collapse (principal); R42 Dizziness and giddiness; R94.31 Abnormal electrocardiogram [ECG] [EKG]; R11.0 Nausea; Z03.818 Encounter for observation for suspected exposure to other biological agents ruled out; Z79.899 Other long term (current) drug therapy
CPT/HCPCS: 0241U; 36415; 71046; 80053; 81001; 83735; 84484; 85025; 85610; 85730; 93005; 96360; 99284

== ENCOUNTER → 2024-10-31 15:11 | Outpatient (BNV) | payer BC, SELFPAY | PROVIDERS: Emergency Provider Emergency Medicine; Visit Provider Internal Medicine Cardiovascular Disease | DX: R55 Syncope and collapse (principal) | CPT/HCPCS: 93010 ==

== ENCOUNTER 2025-09-19 11:42 | Outpatient (AMB) | payer MEDICARE, SELFPAY ==
--- OUTSIDE RECORDS SUMMARY | 2025-05-09 09:15 | XMS_ITS ---
Author Organization [facility] Address [address] [facility] [address] [place] [phone] Care Team Providers Care Study Abroad Advisor Name Role Phone Matteo Cho Primary Care Provider Unavaila Benja Gomez Jr REASON FOR VISIT COLON SCREENING Encounters Encounter Location Date Provider Diagnosis [facility] [address] [facility] [address] [place] [phone] 05/09/2025 Benja Vargas Jr Plan Of Treatment Next Appt Details Provider Name:Benja almendarez Jr, 09/20/2025 07:30:00 AM, [address] [place] [address] , [place], [place], [phone], Progress Notes * LIZA SAHAIDOB:1955 (70 yo F)Acc No.[id number]:05/09/2025 Progress Notes Patient: PATSY SANTAMARIA Provider: Indy Vargas MD :1955 A ge:70 Y S ex:Female Date:05/09/2025 Address:[address] [place] [address] Pcp:Matteo Cho Subjective: * Chief Complaints: * 1 . COLON SCREENING. * Medical History: Objective: * Vitals: Assessment: Plan: * Treatment: * * The named appointment provid er may or may not be the originator of this progress note, and it is not deemed complete until electronically signed by the appointment provider. Sign off status: Pending * Provider: Indy Vargas MD Date: 0 05/09/2025 Generated for Gerry kline/Judy/Beena on: 1 03:03 PM EDT
--- OUTSIDE RECORDS SUMMARY | 2025-08-16 03:30 | XMS_ITS ---
Author Organization [facility] Address [address] [place] [address] Care Team Providers Care Blood Bank Credit Clerk Name Role Phone Matteo Cho Primary Care Provider Unavaila Benja Gomez Jr [phone] REASON FOR VISIT screening Encounters Encounter Location Date Provider Diagnosis [facility] Outpatient [address] [place] [phone] 08/16/2025 Benja Vargas Jr Plan Of Treatment Next Appt Details Provider Name:Benja almendarez Jr, 09/20/2025 07:30:00 AM, [address] [place] [address], [phone], Progress Notes * YIFANLIZAIDOB:1955 (70 yo F)Acc No.[id number]:08/16/2025 COLON WITH MAC Patient: PATSY SANTAMARIA Provider: Indy Vargas MD :1955 A ge:70 Y S ex:Female Date:08/16/2025 Address:[address] [place] [address] Pcp:Matteo Cho Subjective: * Chief Complaints: * 1 . Screening. * Medical History: Objective: * Vitals: Assessment: Plan: * Treatment: * * The named appointment provid er may or may not be the originator of this progress note, and it is not deemed complete until electronically signed by the appointment provider. Sign off status: Pending * Provider: Indy Vargas MD Date: 0 08/16/2025 Generated for Gerry kline/Judy/Beena on: 1 03:03 PM EDT
--- NOTE | 2025-09-19 11:44 | MHC.OFFVISWM ---
VS Expanded 09/19/25 11:54 BP 154/70 H Blood Pressure Location Rt brachial Blood Pressure Position Sitting Pulse 70 Pulse Source Pulse Oximeter Temp 95.9 F L Temperature Source Temporal Artery Scan Pulse Oximetry 96 Oxygen Delivery Method Room Air Height 5 ft 2 in Weight 193 lb 12.8 oz BMI 35.4 Body Fat % 45.7 Body Fat Mass 88.6 Fat Free Mass 105.2 Visceral Fat Rating 14.0 Body Water % 38.3 Body Water Mass 74.2 Muscle Mass/Score 99.8 Basal Metabolic Rate/Score 1,471 Intake Visit Reasons: OV [employer] SWL/MWL BMI 35.0 Allergies egg (eggs) Allergy (Intermediate, Verified 09/19/25 12:20) Gastrointestinal Upset seafood Allergy (Intermediate, Verified 09/19/25 12:20) Swelling Penicillins (PCN) Allergy (Mild, Verified 09/19/25 12:20) HIVES Medication List - Last Reconciled 09/19/25 by Migel Strange MD aspirin 81 mg PO DAILY coQ10 (ubiquinol) 100 mg PO BID ezetimibe 10 mg PO DAILY magnesium oxide 300 mg PO DAILY HPI Comments Details: Previous weight loss efforts: Lap band (2009, pre band weight: 205lbs, lowest: 138lbs) Wakes up: 7am, Sleeps 11pm Breakfast: skips Lunch: 11.30am (grilled cheese, hot dog) Dinner: 5pm (chicken, potatoes) Snacks: 4pm (cookies) Exercise: none Beverages: Coffee (2 cups/d with cream and sweetener), Tea: none, Soda: rarely diet soda, Juice: V8 (2/wk), ETOH: 2/mth [facility] Medical History (Updated 09/19/25 @ 12:54 by Migel Strange MD) Hypertension Hyperlipidemia Obstructive sleep apnea on CPAP BMI 35.0-35.9,adult Obesity PMR (polymyalgia rheumatica) GERD (gastroesophageal reflux disease) JYOTI (obstructive sleep apnea) CVA (cerebral vascular accident) (~10/2024) Arthritis Back pain Surgical History (Updated 09/19/25 @ 12:25 by Migel Strange MD) History of appendectomy History of delivery Hx of cholecystectomy History of esophagogastroduodenoscopy (EGD) H/O laparoscopic adjustable gastric banding H/O colonoscopy Family History Mother No problems noted. Father No problems noted. Daughter No problems noted. Daughter No problems noted. Social History Alcohol intake: current Alcohol intake frequency: holidays/special occasions only Patient Tobacco Use Status: Never used Tobacco Physical Exam Vital Signs: Last Vital Signs Temp 95.9 F L 09/19/25 11:54 Pulse 70 09/19/25 11:54 BP 154/70 H 09/19/25 11:54 Pulse Ox 96 09/19/25 11:54 Oxygen Delivery Method Room Air 09/19/25 11:54 BMI result Body Mass Index 35.4 GI Inspection: Yes normal to inspection, Yes incision (well healed) and Yes obesity Palpation (GI): Soft to palpation Extrem Right lower extremity: normal to inspection (mild edema) Left lower extremity: normal to inspection (mild edema) Assessment & Plan Assessment & Plan (1) Obesity: Code(s): E66.9 - Obesity, unspecified Category: Medical Qualifiers: Obesity type: due to excess calories Obesity classification: adult class 2 (BMI 35 - 39.9) Serious obesity comorbidity presence: with serious comorbidity Body mass index: BMI 35.0-35.9 Qualified Code(s): E66.01 - Morbid (severe) obesity due to excess calories; Z68.35 - Body mass index [BMI] 35.0-35.9, adult Plan: 1. As we discussed, based on your present BMI you are approximately 65lbs overweight. In my opinion, for any weight loss strategy to be successful should have a high probability to help you lose at least 50lbs out of 65lbs of the extra weight you carry. We discussed in detail the available therapeutic options: 1) our lifestyle intervention program that has an average weight loss of 10% in 3 months.?Some patients continue it for longer and have lost over 50lbs but this is not common. Our lifestyle program can be provided by me or by using our software adan, the [employer] adan. I will provide you with a link to use the adan if you choose to do so. We use protein shakes and protein bars to replace some of the meals of the day and cover your appetite better. We will decide together the exact combination. As we discussed, it would be best to buy a stationary bike at home. 2) Weight loss medications: these can be used in conjunction with our lifestyle program or you may choose to use them without following a lifestyle program from my program but your own. As we discussed, your insurance requires you to do the lifestyle program for 6 months before they approve the medications. The medication I use more often is called Zepbound and is one shot per week. My office will do the authorizations and we will train you how to use it properly. We also discussed that you can self pay for the first 3 months and the cost is $249 for the first month and $499 for any other month thereafter. These payments go to the drug company directly and not to us. I think if you use the medication in conjunction with our lifestyle program, understanding that you must change some of your habits long-term, you could lose the weight you need to lose in 3-4 months without surgery. 3) We also discussed about the lap sleeve gastrectomy. In my opinion this is the most effective option to solve your problem based on your situation and should be used in conjunction with the two previous options, but at the same time has more risks especially for you because of the history of lap band. A good strategy to make this decision to proceed with surgery, is to set some goals with the lifestyle intervention and medication options: If you don't lose at least 10lbs the first 6 weeks after starting the program or at least 10% in 3 months. ?I emphasized the importance of close follow-up, adherence to instructions and good communication. The surgery does not replace the need to change your lifestlyle which is the cause of the obesity problem. The surgery provides the motivation to try again to change your lifestyle, it reduces the appetite and make the transition to a better lifestyle easier and doubles the amount of weight you would lose compared to doing the lifestyle change without the surgery. You will need to be on a liquid diet with protein shakes for 2 weeks before surgery to maximize weight loss and boost your nutritional status to recover better from surgery and also for the first two weeks after surgery to let the stomach heal before we introduce other foods. After the first 2 weeks we will introduce protein bars and soft foods like scrambled eggs, cottage cheese and yogurt and after the 6th week will introduce meat, fish and cooked vegetables in small amounts. Over time you should be able to eat everything in small amounts. Side effects like nausea, vomiting, heartburn or abdominal pain are not common in the practice unless you are not following in the practice. This operation requires lifetime commitment to following in our practice and communication with me. You will much less weight and experience side effects if you don?t communicate or not following in the practice. Complications are rare and in our practice is about 1/10 of the national average. Please let me know what you would like to do.
[2025-09-19 11:54] VITALS: BP 154/70; PULSE 70; TEMP 35.5; O2SAT 96; BMI 35.4
--- OUTSIDE RECORDS SUMMARY | 2025-09-19 15:03 | XMS_ITS | Encounter Summary ---
Author Organization [facility] Address [address] [place] [address] Care Team Providers Care Molding Machine Operator Name Role Phone Unavailable Primary Care Provider Unavailabl e Encounter Details Date Type Department Care Team (Late st Contact Info) Description 11/14/2024 Lab Requisition [facility] - Main Lab [address] [place] [address] Kaveh Arechiga MD [address] [place] [id number] Encounter for other general examination Social History [...] AM EST) WBC 6.8 4.8 - 10.8 K/[facility] LAB HEMETOLOGY METHOD 11/14/2024 10:05 AM EST [facility] LAB RBC 4.00 3.80 - 4.80 M/mcL LAB HEMETOLOGY METHOD 11/14/2024 10:05 AM [facility] LAB Hemoglobin 13.2 11.5 - 16.0 g/dL LAB HEMETOLOGY METHOD 11/14/2024 10:05 AM [facility] LAB Hematocrit 40.4 35.0 - 47.0 % LAB HEMETOLOGY METHOD 11/14/2024 10:05 AM [facility] LAB MCV 100.0(H) 79.0 - 98.0 FL LAB HEMETOLOGY METHOD 11/14/2024 10:05 AM [facility] LAB MCH 32.7(H) 27.0 - 32.0 pcg LAB HEMETOLOGY METHOD 11/14/2024 10:05 AM [facility] LAB MCHC 32.7 32.0 - 37.0 g/dL LAB HEMETOLOGY METHOD 11/14/2024 10:05 AM [facility] LAB RDW 12.4 11.0 - 15.0 % LAB HEMETOLOGY METHOD 11/14/2024 10:05 AM [facility] LAB Platelets 195 130 - 400 K/mcL LAB HEMETOLOGY METHOD 11/14/2024 10:05 AM [facility] LAB MPV 12.4(H) 7.0 - 11.0 FL LAB HEMETOLOGY METHOD 11/14/2024 10:05 AM [facility] LAB NRBC 0.0 <1.0 % LAB HEMETOLOGY METHOD 11/14/2024 10:05 AM [facility] LAB NRBC Absolute 0.00 <0.10 K/mcL LAB HEMETOLOGY METHOD 11/14/2024 10:05 AM [facility] LAB Neutrophils Relative 49.2 % LAB HEMETOLOGY METHOD 11/14/2024 10:05 AM [facility] LAB Lymphocytes Relative 37.0 % LAB HEMETOLOGY METHOD 11/14/2024 10:05 AM [facility] LAB Monocytes Relative 9.2 % LAB HEMETOLOGY METHOD 11/14/2024 10:05 AM [facility] LAB Eosinophils Relative 3.4 % LAB HEMETOLOGY METHOD 11/14/2024 10:05 AM [facility] LAB Basophils Relative 0.9 % LAB HEMETOLOGY METHOD 11/14/2024 10:05 AM [facility] LAB Immature Granulocytes Relative 0.3 % LAB HEMETOLOGY METHOD 11/14/2024 10:05 AM [facility] LAB Neutrophils Absolute 3.32 1.50 - 7.00 K/mcL LAB HEMETOLOGY METHOD 11/14/2024 10:05 AM [facility] LAB Lymphocytes Absolute 2.50 1.00 - 5.00 K/mcL LAB HEMETOLOGY METHOD 11/14/2024 10:05 AM [facility] LAB Monocytes Absolute 0.62 0.20 - 1.00 K/mcL LAB HEMETOLOGY METHOD 11/14/2024 10:05 AM [facility] LAB Eosinophils Absolute 0.23 0.00 - 0.50 K/mcL LAB HEMETOLOGY METHOD 11/14/2024 10:05 AM [facility] LAB Basophils Absolute 0.06 0.00 - 0.20 K/mcL LAB HEMETOLOGY METHOD 11/14/2024 10:05 AM [facility] LAB Immature Granulocytes Absolute 0.02 0.00 - 0.03 K/mcL LAB HEMETOLOGY METHOD 11/14/2024 10:05 AM [facility] LAB Blood Venous blood specimen / Unknown Venipuncture / Unknown 11/14/2024 5:36 AM EST 11/14/2024 8:59 AM EST us Kaveh Arechiga MD LAB BLOOD ORDERABLES Final Resu lt [facility] [address] [place] [address], [place] [phone] * (ABNORMAL) Magnesium (11/14/2024 5:36 AM EST) [facility] Magnesium 1.8(L) 1.9 - 2.6 mg/dL LAB CHEMISTRY METHOD 11/14/2024 10:38 AM EST [facility] LAB Blood Venous blood specimen / Unknown Venipuncture / Unknown 11/14/2024 5:36 AM EST 11/14/2024 8:59 AM EST Kaveh Arechiga MD LAB BLOOD ORDERABLES Final Resu lt [facility] [address] [place] [address], [place] [phone] * Comprehensive metabolic panel (11/14/2024 5:36 AM EST) [facility] Sodium 138 133 - 145 mmol/L LAB CHEMISTRY METHOD 11/14/2024 10:38 AM [facility] LAB Potassium 4.0 3.5 - 5.5 mmol/L LAB CHEMISTRY METHOD 11/14/2024 10:38 AM [facility] LAB Chloride 107 96 - 110 mmol/L LAB CHEMISTRY METHOD 11/14/2024 10:38 AM [facility] LAB CO2 27 21 - 32 mmol/L LAB CHEMISTRY METHOD 11/14/2024 10:38 AM [facility] Anion Gap 4 3 - 11 LAB CHEMISTRY METHOD 11/14/2024 10:38 AM [facility] LAB Glucose 88 70 - 100 mg/dL LAB CHEMISTRY METHOD 11/14/2024 10:38 AM [facility] BUN 14 5 - 25 mg/dL LAB CHEMISTRY METHOD 11/14/2024 10:38 AM [facility] LAB Creatinine 0.67 0.50 - 1.10 mg/dL LAB CHEMISTRY METHOD 11/14/2024 10:38 AM [facility] LAB eGFR 96 >=60 mL/min/1. 73m2 LAB CHEMISTRY METHOD 11/14/2024 10:38 AM [facility] LAB Comment:Calculation based on the Chronic Kidney Disease Epidemiology Collaboration (CKD-EPI) equation refit without adjustment for race. BUN/Creatinine Ratio 20.9 LAB CHEMISTRY METHOD 11/14/2024 10:38 AM [facility] LAB Calcium 9.0 8.5 - 10.5 mg/dL LAB CHEMISTRY METHOD 11/14/2024 10:38 AM [facility] LAB AST (SGOT) 41 10 - 42 unit/L LAB CHEMISTRY METHOD 11/14/2024 10:38 AM [facility] ALT (SGPT) 44 10 - 60 unit/L LAB CHEMISTRY METHOD 11/14/2024 10:38 AM [facility] LAB Alkaline Phosphatase 83 42 - 121 unit/L LAB CHEMISTRY METHOD 11/14/2024 10:38 AM [facility] Total Protein 6.3 6.0 - 8.0 g/dL LAB CHEMISTRY METHOD 11/14/2024 10:38 AM [facility] Albumin 3.4 3.2 - 5.0 g/dL LAB CHEMISTRY METHOD 11/14/2024 10:38 AM [facility] Total Bilirubin 0.8 0.0 - 1.4 mg/dL LAB CHEMISTRY METHOD 11/14/2024 10:38 AM [facility] LAB Blood Venous blood specimen / Unknown Venipuncture / Unknown 11/14/2024 5:36 AM EST 11/14/2024 8:59 AM EST us Kaveh Arechiga MD LAB BLOOD ORDERABLES Final Resu lt [facility] [address] [place] [address], documented in this encounter Visit Diagnoses Diagnosis Encounter for other general examination documented in this encounter
--- OUTSIDE RECORDS SUMMARY | 2025-09-19 15:03 | XMS_ITS | Clinical Summary ---
Author Organization [facility] Address [address] [place] [phone] Phone Care Team Providers Care Shearing Machine Operator Name Role Phone Unavailable Primary [...] It is not the complete legal health record.[facility]
--- OUTSIDE RECORDS SUMMARY | 2025-09-19 15:03 | XMS_ITS | Clinical Summary ---
Author Organization [facility] [address] [facility] Address [address] [place] [address] Phone Care Team Providers Care Blocker Heated Metal Forms Name Role Phone Unavailable Primary Care Provider [...] Last Done Comments Breast Cancer Screening 1955 Colorectal Cancer Screening: Colonoscopy 1955 DTaP,Tdap,and Td Vaccines (1 - Tdap) 1976 Pneumococcal Vaccine: 50+ Ye ars (1 of 1 - PCV) 2007 Zoster Vaccines (1 of 2) 2007 Depression Screening 11/24/2024 Falls Risk Assessment 12/19/2024 Hepatitis C Screening 12/19/2024 Osteoporosis Screening (Bone Density Screening) 12/19/2024 Social Influencers of Health Screening 12/19/2024 COVID-19 Vaccine (1 - 2023-2 5 season) 2025 Influenza Vaccine (#1) 2025 RSV Immunization Adult [...]
--- OUTSIDE RECORDS SUMMARY | 2025-09-19 15:03 | XMS_ITS | Patient Health Record ---
Author Organization [facility] Address [address] [place] [phone] Care Team Providers Care Graphite Mill Operator Name Role Phone Matteo Cho Primary Care Provider Benja Mendes Jr Unavailable [phone] Allergies Allergen (clinical drug ingredient) Drug/Non Drug Allergy documented on EMR Reaction Allergy Type Onset Date Status Penicillin Unknown Drug Allergy Active Eggs (uncoded) Unknown Allergy Activ e Reason For Referral No Information Medications Medication SIG (Take, Route, Frequency, Duration) Notes Start Date End Date Status Magnesium 300 MG 1 capsule with a samy l Orally Once a day; Duration: 30 day(s) 05/23/2025 Active Co Q 10 100 MG as directed Orally 05/23/2025 Active Ibuprofen PRN Active Aspirin 81 81 MG 1 tablet Orally Once a day; Duration: 30 day(s) 05/23/2025 Active Rosuvastatin Calcium 5 MG Oral; Duration: 30 Days Active Immunizations Vaccine Route Administration [...] Problem Status W/U Status Risk Notes Problem Rectal bleeding (43739699) Rectal bleeding (K62.5) Active confirmed Problem Screening for malignant neoplasm of colon (771183142) Encounter for screening for malignant neoplasm of colon (Z12.11) Active confirmed Problem Pre-procedure evaluation check (655583349) Encounter for other preprocedural examination (Z01.818) Active confirmed Problem Gastroesophageal reflux disease without esophagitis (600748656) Gastroesophageal reflux disease without esophagitis (K21.9) Active [...] 12/14. Encounters Encounter Location Date Provider Diagnosis [facility] [address] [place] [phone] 05/23/2025 Benja Vargas Jr Encounter for screening for malignant neoplasm of colon Z12.11 and Gastroesophageal reflux disease without esophagitis K21.9 [facility] [address] [place] [phone] 05/23/2025 Benja Vargas Jr Assessments Encounter Date Diagnosis (ICD Code) Assessment [...] 08/16/2020 COLONOSCOPY 05/23/2025 Next Appt Details Provider Name:Benja Gayathri almendarez , 09/20/2025 07:30:00 AM, [address] [place] [address], [phone], Insurance Providers Payer Name Payer Address Payer Phone Subscriber Number Group Number Insured Name Patient Relationship to Insured Coverage Start Date Coverage End Date [facility] [address] [place] [address] [id number] PATSY SAHA Self - patient is the [...]
== END 2025-09-19 13:02 | disposition home or self-care (01) ==
LOC: HO.HBS 11:42
PROVIDERS: PCP Family Medicine; Visit Provider Surgery
DX: E66.9 Obesity, unspecified (principal); Z68.35 Body mass index [BMI] 35.0-35.9, adult
CPT/HCPCS: 99204

== ENCOUNTER → 2025-09-19 11:42 | Outpatient (BNVA) | payer MEDICARE, SELFPAY | PROVIDERS: PCP Family Medicine; Visit Provider Surgery | DX: E66.01 Morbid (severe) obesity due to excess calories (principal); Z68.35 Body mass index [BMI] 35.0-35.9, adult | CPT/HCPCS: 99202 ==

== ENCOUNTER 2025-09-20 06:21 | Day surgery (SDC) | payer MEDICARE, SELFPAY ==
--- OUTSIDE RECORDS SUMMARY | 2025-05-09 09:15 | XMS_ITS ---
Author Organization [facility] Address [address] [facility] [address] [place] [phone] Care Team Providers Care Poultry Grader Name Role Phone Matteo Cho Primary Care Provider Unavaila Benja Gomez Jr REASON FOR VISIT COLON SCREENING Encounters Encounter Location Date Provider Diagnosis [facility] [address] [facility] [address] [place] [phone] 05/09/2025 Benja Vargas Jr Plan Of Treatment Next Appt Details Provider Name:Benja almendarez Jr, 09/20/2025 07:30:00 AM, [address] [place] [address] , [place], [place], [phone], Progress Notes * LIZA SAHAIDOB:1955 (70 yo F)Acc No.[id number]:05/09/2025 Progress Notes Patient: PATSY SANTAMARIA Provider: Indy Vargas MD :1955 A ge:70 Y S ex:Female Date:05/09/2025 Address:[address] [place] [address] Pcp:Matteo Cho Subjective: * Chief Complaints: * [...] 0 05/09/2025 Generated for Gerry kline/Judy/Beena on: 0 07/28/2025 01:34 PM EDT
--- OUTSIDE RECORDS SUMMARY | 2025-07-28 13:35 | XMS_ITS | Clinical Summary ---
Author Organization [facility] [address] [facility] Address [address] [place] [address] Phone Care Team Providers Care Pricing Specialist Name Role Phone Unavailable Primary Care Provider Unavailabl e Social History Tobacco Use Types Packs/Day Years Used Date Smoking Tobacco: Never Assessed Comments Unknown Sex and Gender Information Value Date Recorded Sex Assigned at Not on file Legal Sex Female 6:46 PM EST Gender Identity Not on file Sexual Orientation Not on file Plan of Treatment Health Maintenance Due Date Last Done Comments Breast Cancer Screening 1955 DTaP,Tdap,and Td Vaccines (1 - Tdap) 1976 Pneumococcal Vaccine: 50+ Ye ars (1 of 1 - PCV) 2007 Zoster Vaccines (1 of 2) 2007 COVID-19 Vaccine (1 - 2023-2 5 season) 2024 Depression Screening 11/24/2024 Colorectal Cancer Screening: Colonoscopy 12/19/2024 Falls Risk Assessment 12/19/2024 Hepatitis C Screening 12/19/2024 Osteoporosis Screening (Bone Density Screening) 12/19/2024 Social Influencers of Health Screening 12/19/2024 Influenza Vaccine (#1) 2025 RSV Immunization Adult Patie nts (1 - 1-dose 75+ series) 2032 HIB Vaccines Aged Out No longer eligi ble based on patient's age to complete this topic HPV Vaccines Aged Out No longer eligi ble based on patient's age to complete this topic Hepatitis A Vaccines Aged Out No long er eligible based on patient's age to complete this topic Hepatitis B Vaccines Aged Out No long er eligible based on patient's age to complete this topic IPV Vaccines Aged Out No longer eligi ble based on patient's age to complete this topic MMR Vaccines Aged Out No longer eligi ble based on patient's age to complete this topic Meningococcal ACWY Vaccine Aged Out N o longer eligible based on patient's age to complete this topic Meningococcal B Vaccine Aged Out No l onger eligible based on patient's age to complete this topic RSV Immunization Patients Un fabiana 20 months Aged Out No longer eligible b ased on patient's age to complete this topic Varicella Vaccines Aged Out No longer eligible based on patient's age to complete this topic Insurance MEDICARE
--- OUTSIDE RECORDS SUMMARY | 2025-07-28 13:35 | XMS_ITS | Clinical Summary ---
Author Organization [facility] Address [address] [facility] [address] [place] [phone] Phone Care Team Providers Care Er Manager Name Role Phone Unavailable Primary Care Provider Unavailabl e Social History Tobacco Use Types Packs/Day Years Used Date Smoking Tobacco: Never Assessed Education Answer Date Recorded Are you interested in more education? Not on prateek e 11/16/2024 Are you concerned about learning? Not on file 11/16/2024 No 11/16/2024 No 11/16/2024 Digital Access Answer Date Recorded No 11/16/2024 No 11/16/2024 Reliable internet access at home? Not on file 11/16/2024 Device with a working camera? Not on file Comments Unknown Sex and Gender Information Value Date Recorded Sex Assigned at Not on file Legal Sex Female 12:35 PM EST Gender Identity Not on file Sexual Orientation Not on file Plan of Treatment Not on file Medical Devices Not on file Additional Source Comments The information contained in this document represents components of the legal health record. It is not the complete legal health record.[facility]
--- OUTSIDE RECORDS SUMMARY | 2025-07-28 13:35 | XMS_ITS | Encounter Summary ---
Author Organization [facility] Address [address] [place] [address] Care Team Providers Care Hat Blocking Operator Name Role Phone Unavailable Primary Care Provider Unavailabl e Encounter Details Date Type Department Care Team (Late st Contact Info) Description 11/14/2024 Lab Requisition [facility] [address] [place] [address] Kaveh Arechiga MD [address] [place] [id number] Encounter for other general examination Social History Tobacco Use Types Packs/Day Years Used Date Smoking Tobacco: Never Assessed Comments Unknown Sex and Gender Information Value Date Recorded Sex Assigned at Not on file Legal Sex Female 6:46 PM EST Gender Identity Not on file Sexual Orientation Not on file documented as of this encounter Plan of Treatment Not on file documented as of this encounter Procedures Procedure Name Priority Date/Time Associated Diagnosis Comments CBC WITH AUTO DIFFERENTIAL Routine 11/14/2024 5:36 AM EST Encounter for other general examination CBC AND DIFFERENTIAL Routine 11/14/2024 5:36 AM EST Encounter for other general examination MAGNESIUM Routine 11/14/2024 5:36 AM EST Encounter for other general examination COMPREHENSIVE METABOLIC PANEL Routine 11/14/2024 5:36 AM EST Encounter for other general examination documented in this encounter Results * (ABNORMAL) CBC auto differential (11/14/2024 5:36 AM EST) WBC 6.8 4.8 - 10.8 [facility] LAB HEMETOLOGY METHOD 11/14/2024 10:05 AM EST [facility] RBC 4.00 3.80 - 4.80 M/mcL LAB HEMETOLOGY METHOD 11/14/2024 10:05 AM [facility] Hemoglobin 13.2 11.5 - 16.0 g/dL LAB HEMETOLOGY METHOD 11/14/2024 10:05 AM [facility] Hematocrit 40.4 35.0 - 47.0 % LAB HEMETOLOGY METHOD 11/14/2024 10:05 AM [facility] MCV 100.0(H) 79.0 - 98.0 FL LAB HEMETOLOGY METHOD 11/14/2024 10:05 AM [facility] MCH 32.7(H) 27.0 - 32.0 pcg LAB HEMETOLOGY METHOD 11/14/2024 10:05 AM [facility] MCHC 32.7 32.0 - 37.0 g/dL LAB HEMETOLOGY METHOD 11/14/2024 10:05 AM [facility] RDW 12.4 11.0 - 15.0 % LAB HEMETOLOGY METHOD 11/14/2024 10:05 AM [facility] Platelets 195 130 - 400 K/mcL LAB HEMETOLOGY METHOD 11/14/2024 10:05 AM [facility] MPV 12.4(H) 7.0 - 11.0 FL LAB HEMETOLOGY METHOD 11/14/2024 10:05 AM [facility] NRBC 0.0 <1.0 % LAB HEMETOLOGY METHOD 11/14/2024 10:05 AM [facility] NRBC Absolute 0.00 <0.10 K/mcL LAB HEMETOLOGY METHOD 11/14/2024 10:05 AM [facility] Neutrophils Relative 49.2 % LAB HEMETOLOGY METHOD 11/14/2024 10:05 AM [facility] Lymphocytes Relative 37.0 % LAB HEMETOLOGY METHOD 11/14/2024 10:05 AM [facility] Monocytes Relative 9.2 % LAB HEMETOLOGY METHOD 11/14/2024 10:05 AM [facility] Eosinophils Relative 3.4 % LAB HEMETOLOGY METHOD 11/14/2024 10:05 AM [facility] Basophils Relative 0.9 % LAB HEMETOLOGY METHOD 11/14/2024 10:05 AM [facility] Immature Granulocytes Relative 0.3 % LAB HEMETOLOGY METHOD 11/14/2024 10:05 AM [facility] Neutrophils Absolute 3.32 1.50 - 7.00 K/mcL LAB HEMETOLOGY METHOD 11/14/2024 10:05 AM [facility] Lymphocytes Absolute 2.50 1.00 - 5.00 K/mcL LAB HEMETOLOGY METHOD 11/14/2024 10:05 AM [facility] Monocytes Absolute 0.62 0.20 - 1.00 K/mcL LAB HEMETOLOGY METHOD 11/14/2024 10:05 AM [facility] Eosinophils Absolute 0.23 0.00 - 0.50 K/mcL LAB HEMETOLOGY METHOD 11/14/2024 10:05 AM [facility] Basophils Absolute 0.06 0.00 - 0.20 K/mcL LAB HEMETOLOGY METHOD 11/14/2024 10:05 AM [facility] Immature Granulocytes Absolute 0.02 0.00 - 0.03 K/mcL LAB HEMETOLOGY METHOD 11/14/2024 10:05 AM [facility] Blood Venous blood specimen / Unknown Venipuncture / Unknown 11/14/2024 5:36 AM EST 11/14/2024 8:59 AM EST us Kaveh Arechiga MD LAB BLOOD ORDERABLES Final Resu lt [facility] [address] [place] [address], [place] [phone] * (ABNORMAL) Magnesium (11/14/2024 5:36 AM EST) [facility] Magnesium 1.8(L) 1.9 - 2.6 mg/dL LAB CHEMISTRY METHOD 11/14/2024 10:38 AM EST [facility] Blood Venous blood specimen / Unknown Venipuncture / Unknown 11/14/2024 5:36 AM EST 11/14/2024 8:59 AM EST Kaveh Arechiga MD LAB BLOOD ORDERABLES Final Resu lt [facility] [address] [place] [address], [place] [phone] * Comprehensive metabolic panel (11/14/2024 5:36 AM EST) [facility] Sodium 138 133 - 145 mmol/L LAB CHEMISTRY METHOD 11/14/2024 10:38 AM [facility] Potassium 4.0 3.5 - 5.5 mmol/L LAB CHEMISTRY METHOD 11/14/2024 10:38 AM [facility] Chloride 107 96 - 110 mmol/L LAB CHEMISTRY METHOD 11/14/2024 10:38 AM [facility] CO2 27 21 - 32 mmol/L LAB CHEMISTRY METHOD 11/14/2024 10:38 AM [facility] Anion Gap 4 3 - 11 LAB CHEMISTRY METHOD 11/14/2024 10:38 AM [facility] Glucose 88 70 - 100 mg/dL LAB CHEMISTRY METHOD 11/14/2024 10:38 AM [facility] BUN 14 5 - 25 mg/dL LAB CHEMISTRY METHOD 11/14/2024 10:38 AM [facility] Creatinine 0.67 0.50 - 1.10 mg/dL LAB CHEMISTRY METHOD 11/14/2024 10:38 AM [facility] eGFR 96 >=60 mL/min/1. 73m2 LAB CHEMISTRY METHOD 11/14/2024 10:38 AM [facility] Comment:Calculation based on the Chronic Kidney Disease Epidemiology Collaboration (CKD-EPI) equation refit without adjustment for race. BUN/Creatinine Ratio 20.9 LAB CHEMISTRY METHOD 11/14/2024 10:38 AM [facility] Calcium 9.0 8.5 - 10.5 mg/dL LAB CHEMISTRY METHOD 11/14/2024 10:38 AM [facility] AST (SGOT) 41 10 - 42 unit/L LAB CHEMISTRY METHOD 11/14/2024 10:38 AM [facility] ALT (SGPT) 44 10 - 60 unit/L LAB CHEMISTRY METHOD 11/14/2024 10:38 AM [facility] Alkaline Phosphatase 83 42 - 121 unit/L LAB CHEMISTRY METHOD 11/14/2024 10:38 AM [facility] Total Protein 6.3 6.0 - 8.0 g/dL LAB CHEMISTRY METHOD 11/14/2024 10:38 AM [facility] Albumin 3.4 3.2 - 5.0 g/dL LAB CHEMISTRY METHOD 11/14/2024 10:38 AM [facility] Total Bilirubin 0.8 0.0 - 1.4 mg/dL LAB CHEMISTRY METHOD 11/14/2024 10:38 AM [facility] Blood Venous blood specimen / Unknown Venipuncture / Unknown 11/14/2024 5:36 AM EST 11/14/2024 8:59 AM EST us Kvaeh Arechiga MD LAB BLOOD ORDERABLES Final Resu lt [facility] [address] [place] [address], documented in this encounter Visit Diagnoses Diagnosis Encounter for other general examination documented in this encounter
--- OUTSIDE RECORDS SUMMARY | 2025-07-28 13:35 | XMS_ITS | Patient Health Record ---
Author Organization [facility] Address [address] [place] [id number] Care Team Providers Care Collector Name Role Phone Matteo Cho Primary Care Provider Benja Mendes Jr Unavailable Allergies Allergen (clinical drug ingredient) Drug/Non Drug Allergy documented on EMR Reaction Allergy Type Onset Date Status Penicillin Unknown Drug Allergy Active Eggs (uncoded) Unknown Allergy Activ e Reason For Referral No Information Medications Medication SIG (Take, Route, Frequency, Duration) Notes Start Date End Date Status Magnesium 300 MG 1 capsule with a samy l Orally Once a day for 30 day(s) 05/23/2025 Active Co Q 10 100 MG as directed Orally 05/23/2025 Active Ibuprofen PRN Active Aspirin 81 81 MG 1 tablet Orally Once a day for 30 day(s) 05/23/2025 Active Rosuvastatin Calcium 5 MG Oral for 30 Days Active Immunizations Vaccine Route Administration Date Status Comme nts Influenza Unknown 08/16/2020 Refused Influenza Unknown 11/27/2020 Refused Influenza Unknown 05/23/2025 Refused Social History Tobacco Use: Social History Observation Description Date Details (start date - stop date) Former Smoker NA - NA Tobacco Use/Smoking Question Answer Notes Patient is a former smoker How long has it been since you last smoked? > 10 years AUDIT-C (Standard) Question Answer Notes Did you have a drink contain ing alcohol in the past year? Yes How often did you have a dri nk containing alcohol in the past year? Monthly or less (1 point) How many drinks did you have on a typical day when you were drinking in the past year? 1 or 2 drinks (0 point) How often did you have six o r more drinks on one occasion in the past year? Never (0 point) Points 1 Interpretation Negative Problems Problem Type SNOMED Code ICD Code Onset Dates Problem Status W/U Status Risk Notes Problem 17880322 Rectal bleeding (K62.5) Active confirmed Problem Screening for malignant neoplasm of colon (629755460) Encounter for screening for malignant neoplasm of colon (Z12.11) Active confirmed Problem 56475313 Encounter for ot her preprocedural examination (Z01.818) Active confirmed Problem 337038578 Gastroesophageal reflux disease without esophagitis (K21.9) Active confirmed Vital Signs Temperature 98.6 degrees Fahrenheit 05/23/2025 Weig ht was 168 in 12/14. Blood pressure diastolic 01 mm Hg 05/23/2025 Guy ght was 168 in 12/14. Height 61.25 in 05/23/2025 Weight was 168 in 12/14. Blood pressure systolic 001 mm Hg 05/23/2025 Weig ht was 168 in 12/14. Weight 192 lbs 05/23/2025 Weight was 168 in 12/14. BMI 35.98 kg/m2 05/23/2025 Weight was 168 in 12/14. Encounters Encounter Location Date Provider Diagnosis [facility] [address] [facility] [address] [place] [id number] 05/23/2025 Benja Vargas Jr Encounter for screening for malignant neoplasm of colon Z12.11 and Gastroesophageal reflux disease without esophagitis K21.9 Assessments Encounter Date Diagnosis (ICD Code) Assessment Notes Treatment Notes Treatment Clinical Notes Section Notes 05/23/2025 Encounter for screening for malignant neoplasm of colon (ICD-10 - Z12.11) We discussed gastroesophageal reflux disease today. We discussed diet, lifestyle modifications, and weight management. She will continue these measures for management of her reflux. We reviewed her endoscopy results from 2019, and she does not need follow-up endoscopy at this time. She is due for colorectal cancer screening. We discussed risks and benefits of the procedure today. She understands these and agrees to proceed. She is advised to stop aspirin and ibuprofen 1 week before the procedure. 05/23/2025 Gastroesophageal reflux disease without esophagitis (ICD-10 - K21.9) We discussed gastroesophageal reflux disease today. We discussed diet, lifestyle modifications, and weight management. She will continue these measures for management of her reflux. We reviewed her endoscopy results from 2019, and she does not need follow-up endoscopy at this time. She is due for colorectal cancer screening. We discussed risks and benefits of the procedure today. She understands these and agrees to proceed. She is advised to stop aspirin and ibuprofen 1 week before the procedure. Plan Of Treatment Future Test Test Name Order Date COLONOSCOPY 04/08/2013 COLONOSCOPY 02/01/2016 UPPER GI ENDOSCOPY 08/16/2020 COLONOSCOPY 08/16/2020 COLONOSCOPY 05/23/2025 Next Appt Details Provider Name:Benjaevie almendarez , 09/20/2025 07:30:00 AM, [address] [place] [address] , [place], [place], [phone], Insurance Providers Payer Name Payer Address Payer Phone Subscriber Number Group Number Insured Name Patient Relationship to Insured Coverage Start Date Coverage End Date [facility] [address] [place] [address] [id number] PATSY SAHA Self - patient is the insured Medical (General) History Medical History History ICD Code colonoscopy 09/05/20, recall 5 years due to history of polyps JYOTI?, Sleep study scheduled gastroesophageal reflux dise ase, EGD 09/05/20 negative for Rojas's esophagus or H. pylori Low back pain CVA 11/16 Surgical History Surgery Date(Month/Year) laparoscopic gastric banding, Removal of band 2019 cholecystectomy
[2025-09-16 14:35] VITALS: BMI 36.0
--- NOTE | 2025-09-19 08:48 | HO.ANESPROP2 ---
Documented by User: Lo Serrano NP 09/19/25 08:54 HPI - Anesthesia Eval Consult details Narrative: 70yo F for Colonoscopy RLE numbness and dizziness s/p CVA 2023 PMF Active Problems Active Problems: All Active Problems Atypical pneumonia (Acute) Otitis externa (Acute) Upper respiratory tract infection (Acute) Past Medical History Medical History Hypertension Hyperlipidemia Obstructive sleep apnea on CPAP BMI 35.0-35.9,adult Obesity PMR (polymyalgia rheumatica) GERD (gastroesophageal reflux disease) JYOTI (obstructive sleep apnea) CVA (cerebral vascular accident) (~10/2024) Arthritis Back pain Family History Family History Mother No problems noted. Father No problems noted. Daughter No problems noted. Daughter No problems noted. Surgical History Surgical History History of appendectomy History of delivery Hx of cholecystectomy History of esophagogastroduodenoscopy (EGD) H/O laparoscopic adjustable gastric banding H/O colonoscopy Social History Social History Alcohol intake: current Alcohol intake frequency: holidays/special occasions only Patient Tobacco Use Status: Never used Tobacco Use of substances other than those prescribed or required for medical reasons: No Advance Directives: No Advance Directives Information Provided: Yes Meds Allergies Allergy/AdvReac Type Severity Reaction Status Date / Time egg (eggs) Allergy Intermediate Gastrointestinal Verified 09/19/25 12:20 Upset seafood Allergy Intermediate Swelling Verified 09/19/25 12:20 Penicillins (PCN) Allergy Mild HIVES Verified 09/19/25 12:20 Home Medications ?Medication ?Instructions ?Recorded ?Confirmed ?Last Taken ?Type ezetimibe 10 mg tablet 10 mg PO DAILY 06/17/24 09/19/25 Unknown History aspirin 81 mg tablet,delayed 81 mg PO DAILY 09/16/25 09/19/25 Unknown History release coQ10 (ubiquinol) 100 mg capsule 100 mg PO BID 10/24/25 10/27/25 Unknown History magnesium oxide 300 mg PO DAILY 09/16/25 09/19/25 Unknown History Exam Height,Weight and Vital Signs: Height 5 ft 1.25 in Weight 87.09 kg Assessment and Plan Assessment Anesthesia Assessment: Chart Reviewed Documented by User: Sebastien Connor MD 09/20/25 09:46 [facility] Past Medical History Medical History Hypertension Hyperlipidemia Obstructive sleep apnea on CPAP BMI 35.0-35.9,adult Obesity PMR (polymyalgia rheumatica) GERD (gastroesophageal reflux disease) JYOTI (obstructive sleep apnea) CVA (cerebral vascular accident) (~10/2024) Arthritis Back pain Family History Family History Mother No problems noted. Father No problems noted. Daughter No problems noted. Daughter No problems noted. Family history of problems with anesthesia: No Surgical History Surgical History History of appendectomy History of delivery Hx of cholecystectomy History of esophagogastroduodenoscopy (EGD) H/O laparoscopic adjustable gastric banding H/O colonoscopy History of Problems with Anesthesia: No Social History Social History Alcohol intake: current Alcohol intake frequency: holidays/special occasions only Patient Tobacco Use Status: Never used Tobacco Use of substances other than those prescribed or required for medical reasons: No Advance Directives: No Advance Directives Information Provided: Yes Meds Allergies Allergy/AdvReac Type Severity Reaction Status Date / Time egg (eggs) Allergy Intermediate Gastrointestinal Verified 09/19/25 12:20 Upset seafood Allergy Intermediate Swelling Verified 09/19/25 12:20 Penicillins (PCN) Allergy Mild HIVES Verified 09/19/25 12:20 Home Medications ?Medication ?Instructions ?Recorded ?Confirmed ?Last Taken ?Type ezetimibe 10 mg tablet 10 mg PO DAILY 06/17/24 09/19/25 Unknown History aspirin 81 mg tablet,delayed 81 mg PO DAILY 09/16/25 09/19/25 Unknown History release coQ10 (ubiquinol) 100 mg capsule 100 mg PO BID 09/16/25 09/19/25 Unknown History magnesium oxide 300 mg PO DAILY 09/16/25 09/19/25 Unknown History Exam Airway Loose/Missing/Broken Teeth: Yes Assessment and Plan Assessment Anesthesia Assessment: Anesthesia Plan Discussed Final Anesthetic Review Family History of Problems with Anesthesia: No History of Problems with Anesthesia: No NPO: Yes ASA Class: III Final Preanesthetic Review: No Changes in Pt Med Stat, Meds/Allgs Chart Reviewed, Consent Obtained/Reviewed and Anes Risks/Benef Reviewed Patient Risk: Intermediate Procedure Risk: Low Anesthetic Plan Anesthetic Plan: MAC: Disposition: Standard PACU
[2025-09-20 06:38] VITALS: BMI 36.1
[2025-09-20 06:52] VITALS: BP 156/84; PULSE 73; RESP 16; TEMP 36.3; O2SAT 96
[2025-09-20] MEDS: Lactated Ringers 1,000 ML 100 ML IVCONT (06:54)
--- NOTE | 2025-09-20 07:39 | MHC.SHP ---
Pre-Procedural Eval Section A - 24 Hr Update-Section A only Date of Service: 09/20/25 The patient is an INPATIENT: No Changes since office visit: No Cold of Flu in the past 2 weeks, No New Medical Problems, No Changes in Medication and No Patient answered all questions The patient has been examined within 24 hours of the surgical procedure. The History & Physical has been completed within 30 days and I have reviewed it.: Yes Section B - Complete if H&P > 30 days Chief Complaint: screening,hx malignant neoplasm Allergies: Allergies Allergy/AdvReac Type Severity Reaction Status Date / Time egg (eggs) Allergy Intermediate Gastrointestinal Verified 09/19/25 12:20 Upset seafood Allergy Intermediate Swelling Verified 09/19/25 12:20 Penicillins (PCN) Allergy Mild HIVES Verified 09/19/25 12:20 Plan I have reviewed the history and physical and performed a pertinent physical examination on my patient. No changes have occurred unless specified. Time Spent With Patient Time: Total time managing care of this patient today ____ minutes.
[2025-09-20 08:19] VITALS: BP 135/76; PULSE 74; RESP 16; TEMP 36.9; O2SAT 96
--- NOTE | 2025-09-20 08:37 | OP_ITS ---
DATE OF SERVICE: 09/20/2025 SURGEON: Benja Vargas MD INDICATIONS: Colon cancer screening. PREOPERATIVE DIAGNOSIS: POSTOPERATIVE DIAGNOSIS: PROCEDURE PERFORMED: Colonoscopy to the terminal ileum with biopsy. ESTIMATED BLOOD LOSS: COMPLICATIONS: ANESTHESIA: Monitored anesthesia care. ASSISTANTS: SPECIMENS: DESCRIPTION OF PROCEDURE: A history and physical was performed. The risks and benefits of the procedure were explained to the patient. Informed consent was obtained. The patient was placed in the left lateral decubitus position. A digital rectal exam was performed and was found to be normal. The Olympus pediatric video colonoscope was introduced into the rectum and advanced to the cecum. The cecum was identified by transillumination, palpation, identification of the ileocecal valve. Examination was performed and the scope was removed. She tolerated the procedure well and was returned to the recovery area in stable condition. FINDINGS: Brief examination of the terminal ileum was within normal limits. There were 3 polyps, which were identified. These were all less than 5 mm and were removed with a biopsy forceps. The quality of prep was good. There was mild sigmoid diverticulosis. Retroflexed examination showed some small internal hemorrhoids. IMPRESSION: Colon polyps. RECOMMENDATIONS: Follow up the biopsy results. MD VITALIY Gaytan/TAMARA / [id number]
[2025-09-20 08:39] VITALS: BP 146/77; PULSE 58; RESP 17; TEMP 36.9; O2SAT 96
== END 2025-09-20 09:05 | disposition home or self-care (01) ==
PROVIDERS: PCP Family Medicine; Visit Provider Internal Medicine Gastroenterology
PROC: 0DJD8ZZ Inspection of Lower Intestinal Tract, Via Natural or Artificial Opening Endoscopic (ICD-10-PCS; CPT 45378; principal; 2025-09-20 07:30)
DX: Z12.11 Encounter for screening for malignant neoplasm of colon (principal); Z86.0101 Personal history of adenomatous and serrated colon polyps; Z83.719 Family history of colon polyps, unspecified; Z80.0 Family history of malignant neoplasm of digestive organs; D12.0 Benign neoplasm of cecum; D12.5 Benign neoplasm of sigmoid colon; K57.30 Diverticulosis of large intestine without perforation or abscess without bleeding; K64.8 Other hemorrhoids; K21.9 Gastro-esophageal reflux disease without esophagitis; Z86.73 Personal history of transient ischemic attack (TIA), and cerebral infarction without residual deficits; Z79.1 Long term (current) use of non-steroidal anti-inflammatories (NSAID); Z79.82 Long term (current) use of aspirin; Z79.899 Other long term (current) drug therapy; Z88.0 Allergy status to penicillin; Z91.0120 Allergy to eggs, unspecified; Z98.84 Bariatric surgery status; Z90.49 Acquired absence of other specified parts of digestive tract; Z87.891 Personal history of nicotine dependence
CPT/HCPCS: 45380; 88305; J2003; J2704; J3010